=== PATIENT | female | born 1990 | race American Indian/Alaskan Native ===

== ENCOUNTER 2019-05-26 09:31 | Inpatient (IN) | payer MEDICAID, OTHER ==
[2019-05-26] MEDS ORDERED: LACTATED RINGERS 1,000 ML ONE ×2 (10:35→15:01)
[2019-05-26] MEDS ORDERED: ONDANSETRON 4 MG/2 ML INJ IV PRN ×2 (10:45→14:18)
[2019-05-26] MEDS ORDERED: NALOXONE 0.4 MG/1 ML INJ IV PRN ×2 (10:45→14:14)
[2019-05-26] MEDS ORDERED: HYDROmorphone 1 MG/1 ML INJ IV PRN ×2 (10:45)
--- NOTE | 2019-05-26 10:45 | Anesthesia Consultation ---
Anesthesia Consult and Med Hx Date of service: 05/26/19 - Airway Anesthetic Teeth Evaluation: Good ROM Head & Neck: Adequate Mental/Hyoid Distance: Adequate Mallampati Class: Class II Intubation Access Assessment: Good - Pulmonary Exam CTA: Yes - Cardiac Exam Cardiac Exam: RRR - Pre-Operative Health Status ASA Pre-Surgery Classification: ASA2 Proposed Anesthetic Plan: Spinal - Pulmonary Hx Smoking: No Hx Asthma: No COPD: No Hx Pneumonia: No - Cardiovascular System Hx Hypertension: No - Central Nervous System Hx Seizures: No Hx Psychiatric Problems: No - Endocrine Hx Renal Disease: No Hx End Stage Renal Disease: No Hx Hypothyroidism: No Hx Hyperthyroidism: No - Hematic Hx Anemia: No Hx Sickle Cell Disease: No - Other Systems Hx Alcohol Use: No
--- NOTE | 2019-05-26 10:45 | Anesthesia Day of Surgery ---
Anesthesia Day of Surgery - Day of Surgery Patient Examined: Yes Patient H&P Reviewed: Yes Patient is NPO: Yes
[2019-05-26] MEDS ORDERED: PROMETHAZINE 25 MG TAB PO PRN (11:30)
[2019-05-26] MEDS ORDERED: METOCLOPRAMIDE 10 MG/2 ML INJ IV NR (11:30)
[2019-05-26] MEDS ORDERED: PROMETHAZINE 25 MG RECT SUPP PR PRN (11:30)
[2019-05-26] MEDS: FAMOTIDINE 20 MG/2 ML INJ IV SCH ×2 (11:42→21:46)
[2019-05-26] MEDS ORDERED: BICITRA ORAL LIQD 30ML PO ONE (12:00)
[2019-05-26] MEDS ORDERED: ceFAZolin/STERILE WATER 2 GM/20 ML SYRINGE IV NR (12:00)
[2019-05-26] MEDS ORDERED: ceFAZolin/STERILE WATER 2 GM/20 ML SYRINGE IV ONE (12:30)
[2019-05-26] MEDS ORDERED: SODIUM CHLORIDE 0.9% IRR 1,500 ML BOTTLE IR ONE (12:35)
[2019-05-26] MEDS ORDERED: WATER FOR IRRIG STERILE 1,500 ML BOTTLE IR ONE (12:35)
[2019-05-26] MEDS ORDERED: WITCH HAZEL/ GLYCERIN PAD TP PRN (14:14)
[2019-05-26] MEDS ORDERED: LANOLIN/ZINC/DIMETHICONE (LANSINOH) 7 GM TP PRN (14:14)
[2019-05-26] MEDS ORDERED: MAGNESIUM HYDROXIDE (MOM) ORAL LIQD UDC PO PRN (14:18)
[2019-05-26] MEDS ORDERED: HYDROCORTISONE 25 MG RECTAL SUPP PR PRN (14:18)
[2019-05-26] MEDS ORDERED: SIMETHICONE 80 MG CHEW TAB PO PRN (14:18)
[2019-05-26] MEDS ORDERED: SENNOSIDES 8.6 MG TAB PO PRN (14:18)
--- NOTE | 2019-05-26 14:33 | Procedure Note ---
OB Delivery Note - Delivery Date of Delivery: 05/26/19 Surgeon: VIOLETTE MENDENHALL Estimated blood loss: other (800cc) - Section Preop diagnosis: repeat , desires sterilization Postop diagnosis: same section procedure: repeat low transverse, bilateral tubal ligation Disposition: PACU Complications: none, other (except pt had a lot a scarring and omental adhesions ) Narrative: RLTCS/BTL at 39.4 weeks. H/O 3 prior LTCS's Findings: Normal tubes and ovaries, normal uterus except for significant anterior omental adhesions covering the majority of the anterior side of the uterus. Also significant subcut tissue scarring. Procedure: Patient taken to the operating room and prepped and draped in the usual fashion. Pfannenstiel skin incision was made over her prior incision. Incision carried down to the underlying fascia. Fascia was incised and the incision was extended bilaterally. Rectus fascia then dissected off the rectus muscle superiorly and inferiorly. Peritoneum was carefully identified tented up and entered. Peritoneal incision extended superiorly and inferiorly with good visualization of the bladder. This part of procedure did require some significant dissection of omental adhesions to improve our visualization. Eventually enough of the adhesions were lysed with the bladder blade was able to be placed. At this point the uterine incision was made and the incision was extended bilaterally. A little bit of the rectus muscle on the right was also cut to increase the room that we needed. The amniotic membrane was ruptured at this point which revealed meconium. Baby was delivered in the usual vertex fashion without any difficulty. Baby was bulb suctioned at the incision site and again after delivery. Baby was crying so delayed cord clamping was done. After the cord was cut the baby was handed off to the waiting team. Th e placenta was delivered spontaneously. The uterus was exteriorized and cleared of all clots and debris. The uterine incision was reapproximated with 0 Vicryl in a running locked fashion followed by second imbricating layer of 0 Vicryl. A few additional [id number] stitches were required and then good hemostasis was noted. At this point attention was turned to the remainder of the omental adhesions that were noted to the anterior surface of the cervix and these were lysed without difficulty. Good hemostasis noted. A few of the adhesions required a suture ligation with 0 Vicryl. At this point attention was turned to the tubal ligation bilaterally attention was first turned to the left side where a good segment of tube was obtained. Tubal ligation was performed in the usual fashion with 0 chromic 2 ties. The segment of tube was sent to pathology. Good hemostasis noted. This was then done in the exact same fashion on the right side with equal success and good hemostasis as well. Urine was clear at this point as well. Uterus tubes and ovaries returned the abdominal cavity. Gutters were cleared of all clots and debris. Pelvis was well irrigated. Good hemostasis was noted throughout including at the sites of the tubal ligations on each side. Interceed placed over the uterine incision and over the lower uterine segment in the midline. The cut rectus muscle on the right side was reapproximated with 2-0 Vicryl. Attention was turned to the rectus fascia which is reapproximated with 0 Vicryl in a running fashion. Subcutaneous tissues was well irrigated and reapproximated with 2-0 Vicryl in a running fashion. Skin was closed with 4-0 Vicryl in a subcuticular fashion followed by Dermabond. Procedure was concluded at this point. Patient tolerated the procedure well. All instrument and lap counts were correct. Patient taken to recovery in stable condition. - Infant A at 1 minute: 8 at 5 minutes: 9 Gender: Female (meconium, loose nuchal coard x 1)
[2019-05-26] MEDS ORDERED: OXYTOCIN 20 UNIT/1000ML DRIP 20 UNITS/1,000 ML BAG IV SCH (15:00)
[2019-05-26] MEDS ORDERED: D5W/LACTATED RINGERS 1,000 ML IV SCH (15:00)
[2019-05-26 17:08] LABS: Basophils % (Auto) 0.2 % (0.0-1.8); Eosinophils % (Auto) 0.1 % (0.0-4.3); Hematocrit 37.5 % (30.3-42.9); Hemoglobin 12.4 gm/dl (10.1-14.3); Lymphocytes # (Auto) 1.7 K/mm3 (1.2-5.4); Lymphocytes % (Auto) 14.4 % (13.4-35.0); Mean Corpuscular HGB Conc 33 % (30-34); Mean Corpuscular Volume 92 fl (79-97); Monocytes # (Auto) 0.5 K/mm3 (0.0-0.8); Monocytes % (Auto) 4.1 % (0.0-7.3); Platelet Count 218 K/mm3 (140-440); Red Blood Count 4.09 M/mm3 (3.65-5.03); Red Cell Distribution Width 13.9 % (13.2-15.2)
[2019-05-26] MEDS: KETOROLAC 30 MG/1 ML INJ IV PRN (20:21)
[2019-05-27] MEDS: KETOROLAC 30 MG/1 ML INJ IV PRN (02:12)
[2019-05-27 05:58] LABS: Hematocrit 35.6 % (30.3-42.9); Hemoglobin 12.1 gm/dl (10.1-14.3)
[2019-05-27] MEDS: oxyCODONE /ACETAMINOPHEN 5-325MG TAB PO PRN ×2 (08:18→17:17)
--- NOTE | 2019-05-27 09:51 | Progress Note ---
Assessment and Plan - Patient Problems (1) S/P repeat low transverse Current Visit: Yes Status: Acute Plan to address problem: Continue routine PP orders Anticipate d/c home in 24-48 hrs Keep incision site dry and clean (2) tubal ligation planned Current Visit: Yes Status: Acute Subjective - Subjective Date of service: 05/27/19 Principal diagnosis: S/P repeat C/S with BTL; POD#1 Interval history: See admission H & P; OB operative note and PP progress notes Patient reports: appetite normal, voiding normally, pain well controlled (with medications), flatus, ambulating normally, no bowel movement : doing well, bottle feeding (and ) Objective - Vital Signs Latest vital signs: Vital Signs Temp Pulse Resp BP BP Pulse Ox 05/27/19 08:30 98.4 F 104 H 18 130/76 99 05/27/19 00:00 98.6 F 69 16 99/74 05/26/19 19:30 98.7 F 76 16 113/65 05/26/19 18:27 20 05/26/19 15:53 98.9 F 96 H 20 106/83 100 05/26/19 15:25 98.4 F 104 H 24 122/64 99 05/26/19 15:10 103 H 20 120/57 100 05/26/19 14:55 105 H 15 107/47 99 05/26/19 14:40 108 H 24 108/50 100 05/26/19 14:35 108 H 20 118/46 100 05/26/19 14:30 106 H 13 79/47 100 05/26/19 14:25 97.6 F 103 H 20 124/78 100 05/26/19 10:08 98.5 F 99 H 18 131/77 98 Intake and Output 05/26/19 05/27/19 05/27/19 23:59 07:59 15:59 Intake Total 420 440 240 Output Total 800 1825 Balance -380 -1385 240 Intake: Oral 120 200 240 Intake, Free Water 300 240 Output: Urine 800 1825 Indwelling Catheter 800 1825 Other: Total, Intake Amount 120 200 240 Total, Output Amount 800 825 - Exam Breasts: Present: normal Cardiovascular: Present: Regular rate Lungs: Present: Normal air movement Abdomen: Present: soft, tenderness Uterus: Present: firm, fundal height below umbilicus (U-1) Extremities: Present: normal Deep Tendon Reflex Grade: Normal +2 Incision: Present: dry, intact (glue intact; no signs of infections noted) - Labs Labs: Abnormal lab results 05/26/19 Range/Units 16:32 WBC 11.7 H (4.5-11.0) K/mm3 Seg Neutrophils % 81.2 H (40.0-70.0) % Seg Neutrophils # 9.5 H (1.8-7.7) K/mm3
[2019-05-27] MEDS: FAMOTIDINE 20 MG/2 ML INJ IV SCH (11:33)
[2019-05-27] MEDS: IBUPROFEN 800 MG TAB PO PRN (20:38)
[2019-05-28] MEDS: oxyCODONE /ACETAMINOPHEN 5-325MG TAB PO PRN ×2 (05:51→12:08)
[2019-05-28] MEDS: FAMOTIDINE 20 MG/2 ML INJ IV SCH (10:00)
--- NOTE | 2019-05-28 14:31 | Progress Note ---
Assessment and Plan A: /postop day 2 S/P repeat low transverse section with BTL. P: Encouraged ambulation. Continue current management. Anticipate discharge tomorrow if patient continues to do well. Subjective - Subjective Date of service: 05/28/19 Principal diagnosis: /postop day 2 S/P repeat LTCS with BTL Interval history: /postop day 2 S/P repeat low transverse section with BTL. Patient is doing well. She reports a small amount of lochia. Passing gas, tolerating a regular diet, ambulating well, voiding without difficulty. Patient denies headache, chest pain, cough, shortness of breath, leg pain, abdominal pain, nausea or vomiting. Patient reports: appetite normal, voiding normally, pain well controlled, flatus, ambulating normally, no dizzy ambulation, no nauseated : doing well Objective - Vital Signs Latest vital signs: Vital Signs Temp Pulse Resp BP Pulse Ox 05/28/19 08:30 98.2 F 93 H 18 114/67 97 05/28/19 00:24 98.1 F 97 H 20 121/72 99 05/27/19 17:40 99.2 F 100 H 18 126/76 100 Intake and Output 05/27/19 05/28/19 05/28/19 23:59 07:59 15:59 Intake Total 1440 240 240 Output Total 600 Balance 840 240 240 Intake: Oral 720 240 240 Intake, Free Water 720 Output: Urine 600 Indwelling Catheter 600 Other: Total, Intake Amount 240 240 240 Total, Output Amount 600 # Voids Indwelling Catheter 1 1 - Exam Cardiovascular: Present: Regular rate, Normal S1, Normal S2 Lungs: Present: Clear to auscultation Abdomen: Present: normal appearance, soft, normal bowel sounds. Absent: distention, tenderness, guarding, rigidity Uterus: Present: normal, firm, fundal height below umbilicus. Absent: bogginess, tenderness Extremities: Present: normal. Absent: tenderness, edema Incision: Present: normal, dry, intact
[2019-05-28] MEDS: IBUPROFEN 800 MG TAB PO PRN (17:08)
[2019-05-29] MEDS: oxyCODONE /ACETAMINOPHEN 5-325MG TAB PO PRN ×2 (03:14→11:37)
--- NOTE | 2019-05-29 11:00 | Progress Note ---
Assessment and Plan A: /postop day 3 S/P repeat LTCS with BTL. Mild tachycardia. "Pressure" with voiding. P: Urinalysis and CBC ordered. Will consult with re: this patient. Subjective - Subjective Date of service: 05/29/19 Principal diagnosis: /postop day 3 S/P repeat LTCS with BTL Interval history: /postop day 3 S/P repeat low transverse section with BTL. Patient is doing well. She reports a small amount of lochia. Passing gas, tolerating a regular diet, ambulating well, voiding without difficulty. Does report feeling of "pressure" with voiding beginning last night. Denies back or flank pain. Patient denies headache, chest pain, cough, dizziness, fatigue, shortness of breath, leg pain, abdominal pain, nausea or vomiting. Patient reports: appetite normal, voiding normally, pain well controlled, flatus, ambulating normally, no dizzy ambulation, no nauseated : doing well Objective - Vital Signs Latest vital signs: Vital Signs Temp Pulse Resp BP Pulse Ox 05/29/19 08:44 99.0 F 105 H 18 138/70 97 05/29/19 00:57 97.8 F 100 H 20 117/73 97 05/28/19 17:29 99.4 F 99 H 18 126/73 97 Intake and Output 05/28/19 05/29/19 05/29/19 23:59 07:59 15:59 Intake Total 1200 Balance 1200 Intake: Oral 720 Intake, Free Water 480 Other: Total, Intake Amount 720 # Voids Indwelling Catheter 3 - Exam Cardiovascular: Present: Regular rate, Normal S1, Normal S2, Other (mild tachycardia (105-110, regular)) Lungs: Present: Clear to auscultation Abdomen: Present: normal appearance, soft, normal bowel sounds. Absent: distention, tenderness, guarding, rigidity Uterus: Present: normal, firm, fundal height below umbilicus. Absent: bogginess, tenderness Extremities: Present: normal. Absent: tenderness Incision: Present: normal, dry, intact
[2019-05-29 12:11] LABS: Basophils % (Auto) 0.1 % (0.0-1.8); Eosinophils # (Auto) 0.1 K/mm3 (0.0-0.4); Eosinophils % (Auto) 1.1 % (0.0-4.3); Hematocrit 37.8 % (30.3-42.9); Hemoglobin 12.6 gm/dl (10.1-14.3); Lymphocytes # (Auto) 2.1 K/mm3 (1.2-5.4); Lymphocytes % (Auto) 21.8 % (13.4-35.0); Mean Corpuscular HGB Conc 33 % (30-34); Mean Corpuscular Volume 91 fl (79-97); Monocytes # (Auto) 0.8 K/mm3 (0.0-0.8); Monocytes % (Auto) 8.5 % (0.0-7.3); Platelet Count 244 K/mm3 (140-440); Red Blood Count 4.16 M/mm3 (3.65-5.03); Red Cell Distribution Width 14.1 % (13.2-15.2)
[2019-05-29 13:05] LABS: Amorphous Crystals,Urine 1+; Bilirubin,Urine NEG (Negative); Blood,Urine LG (Negative); Color,Urine Yellow (Yellow); Mucus,Urine FEW /HPF; Protein,Urine <15 mg/dL mg/dL (Negative)
[2019-05-29 13:15] LABS: RBC,Urine > 182.0 /HPF (0.0-6.0)
--- NOTE | 2019-05-29 13:46 | Discharge Summary ---
Providers - Providers Date of Admission: 05/26/19 09:31 Date of discharge: 05/29/19 Attending physician: VIOLETTE MENDENHALL Primary care physician: VIOLETTE MENDENHALL Hospitalization Reason for admission: section Delivery: Procedure: bilateral tubal ligation, repeat low transverse Incision: normal, dry, intact Other procedures: none complications: none Discharge diagnosis: IUP at term delivered [place] baby: female Pertinent studies: Labs Hospital course: Stable hospital course. Condition at discharge: Good Disposition: DC-01 TO HOME OR SELFCARE - Discharge Diagnoses (1) Term delivered Status: Acute Plan - Discharge Medications Prescriptions: Ibuprofen [Motrin 800 MG tab] 800 mg PO Q6H PRN #30 tablet PRN Reason: Pain, Mild (1-3) oxyCODONE /ACETAMINOPHEN [Percocet 5/325 mg] 1 tab PO Q6H PRN #30 tablet PRN Reason: Pain, Moderate (4-6) - Provider Discharge Summary Activity: routine, no sex for 6 weeks, no heavy lifting 4 weeks, no strenuous exercise Diet: routine Instructions: routine Additional instructions: A prescription for Augmentin has been called to [facility] pharmacy on . You are to take one tablet every 12 hours with food for 1 week. You are to return to [facility] on Thursday05/31/19 for follow up or sooner if needed. Call your doctor immediately for: * Fever > 100.5 * Heavy vaginal bleeding ( >1 pad per hour) * Severe persistent headache * Shortness of breath * Reddened, hot, painful area to leg or breast * Drainage or odor from incision. * Keep incision clean and dry at all times and follow doctor's instructions regarding bathing/showering - Follow up plan Follow up: VIOLETTE MENDENHALL MD [Primary Care Provider] - 05/31/19 Forms: [facility] Discharge Summary
[2019-05-29 16:25] VITALS: BP 126/77
== END 2019-05-29 16:30 | disposition home or self-care (01) | DRG 766 ==
LOC: APU 09:31 → OB 15:44
PROVIDERS: ADMIT Obstetrics & Gynecology; ATTEND Obstetrics & Gynecology
PROC: 10D00Z1 Extraction of Products of Conception, Low, Open Approach (ICD-10-PCS; principal; 2019-05-26)
PROC: 0UB70ZZ Excision of Bilateral Fallopian Tubes, Open Approach (ICD-10-PCS; 2019-05-26)
DX: O77.0 Labor and delivery complicated by meconium in amniotic fluid (principal); O34.211 Maternal care for low transverse scar from previous cesarean delivery; Z37.0 Single live birth; O69.81X0 Labor and delivery complicated by cord around neck, without compression, not applicable or unspecified; Z3A.39 39 weeks gestation of pregnancy; R00.0 Tachycardia, unspecified; O90.89 Other complications of the puerperium, not elsewhere classified; Z30.2 Encounter for sterilization
CPT/HCPCS: 36415; 81001; 85014; 85018; 85025; 86850; 86900; 86901; 88302; G0378; C1765; J0690; J1170; J1885; J2765; J7120; J7121